=== PATIENT | male | born 1990 | race Caucasian/White ===

== ENCOUNTER 2016-09-02 20:41 | Emergency (ER) | payer OTHER | END 2016-09-03 02:01 | disposition home or self-care (01) | LOC: ER 20:41 | DX: F32.9 Major depressive disorder, single episode, unspecified (principal); F22 Delusional disorders; F19.10 Other psychoactive substance abuse, uncomplicated; F17.200 Nicotine dependence, unspecified, uncomplicated; Z79.899 Other long term (current) drug therapy | CPT/HCPCS: 36415; 80307; G0480 ==